=== PATIENT | female | born 1945 ===

== ENCOUNTER 2025-07-17 08:45 | Inpatient (IN) | payer OTHER ==
[~2025-07-17] VITALS: Ht 149.9 cm; Wt 69.9 kg
[2025-07-17] MEDS ORDERED: DILTIAZEM ER240 M3 PO (10:29)
[2025-07-17] MEDS ORDERED: FOSAMAX70 MG PO (10:29)
[2025-07-17] MEDS ORDERED: SYNTHROID137 MCG PO (10:29)
[2025-07-17] MEDS ORDERED: HUMULIN 70100 UNIT/2 (10:30)
[2025-07-17] MEDS ORDERED: ATORVASTATIN CA10 MG PO (10:30)
[2025-07-17] MEDS ORDERED: GLIMEPIRIDE4 M1 PO (10:31)
[2025-07-17] MEDS ORDERED: ZESTRIL20 MG PO (10:31)
[2025-07-17] MEDS ORDERED: HORIZANT300 MG PO (10:31)
[2025-07-17 10:52] VITALS: BP 152/82
[2025-07-17 10:57] LABS: BASO % 0.5 % (0.1-1.2); EOS # 0.26 (0.04-0.54); EOS % 2.4 % (0.7-7.0); LYMPH # 2.43 (1.18-3.74); LYMPH % 22.3 % (19.3-53.1); MEAN PLATELET VOLUME 10.50 fl (9.4-12.4); MONO # 0.74 (0.24-0.82); MONO % 6.8 % (4.7-12.5); NEUT # 7.41 (1.56-6.13); NEUT % 67.7 % (34.0-71.1); RED CELL DISTRIBUTION WIDTH 14.8 % (11.6-14.4)
[2025-07-17 10:58] LABS: URINE APPEARANCE Clear; URINE BILIRRUBIN Negative (NEGATIVE); URINE BLOOD Moderate; URINE COLOR Yellow; URINE KETONE Trace (NEGATIVE); URINE LEUKOCYTE Negative; URINE NITRATE Negative; URINE PROTEIN Trace (NEGATIVE); URINE UROBILINOGEN 0.2 E.U./dl
[2025-07-17 10:59] LABS: URINE BACTERIA 8.3 uL (0.0-1933); URINE EPITHELIAL CELLS 3.3 uL (0.0-38.8); URINE RBC 113.6 uL (0.0-20.8); URINE WBC 6.6 uL (0.0-23.2)
[2025-07-17 11:12] LABS: URINE CAST 0.00 uL (0.0-1.40); URINE GLUCOSE >=1000 MG/DL (NEGATIVE)
[2025-07-17 11:27] LABS: ALT/SGPT 22.0 U/L (12-78); AST/SGOT 20.0 U/L (15-37); BILIRUBIN TOTAL 0.68 mg/dL (0.3-1.2); BUN CREA RATIO 23.0 (7.0-25.0); CREATININE SERUM 1.11 mg/dL (0.55-1.02); GFR 47.18; GLOBULINA 4.4 G/DL (2.4-3.5); GLUCOSE FASTING 129.0 mg/dL (65-100); OSMOLALITY SERUM 287.0 MOSM/KG (275-295)
[2025-07-17 11:31] LABS: INR 1.05
[2025-07-17 13:29] LABS: RH POSITIVE
[2025-07-23] MEDS ORDERED: GABAPENTIN300 M2 (11:48)
[2025-07-23] MEDS ORDERED: FARXIGA10 MG (11:49)
[2025-07-23] MEDS ORDERED: TRANEXAMIC ACID 1,000 MG in 0.9 % SODIUM CHLORIDE 100 ML IV ONE (12:00)
[2025-07-23] MEDS ORDERED: CEFAZOLIN SODIUM 2,000 MG in 0.9 % SODIUM CHLORIDE 100 ML IV ONE (12:00)
[2025-07-23] MEDS ORDERED: VANCOMYCIN HCL 2,000 MG in 0.9 % SODIUM CHLORIDE 250 ML IR ONE (12:00)
[2025-07-23] MEDS ORDERED: POLYMYXIN B SULFATE 500,000 U VIAL IR ONE (12:00)
[2025-07-23] MEDS ORDERED: BUPIVACAINE HCL 30 ML VIAL IJ ONE (12:00)
[2025-07-23] MEDS ORDERED: KETOROLAC TROMETHAMINE 30 MG VIAL IU ONE (12:00)
[2025-07-23] MEDS ORDERED: MORPHINE SULFATE 4 MG/ML VIAL IV ONE ×2 (12:00→16:50)
[2025-07-23] MEDS ORDERED: METHYLPREDNISOLONE ACETATE 80 MG/ML VIAL IU ONE (12:00)
[2025-07-23] MEDS ORDERED: SODIUM CHLORIDE 0.45 % 1,000 ML IV SCH (14:00)
[2025-07-23] MEDS ORDERED: MORPHINE SULFATE 2 MG/ML CARTRIDGE IV ONE (14:00)
[2025-07-23] MEDS ORDERED: MORPHINE SULFATE 4 MG/ML CARTRIDGE IV PRN (14:00)
[2025-07-23] MEDS ORDERED: ONDANSETRON HCL 2 MG/ML VIAL IV PRN (14:00)
[2025-07-23 18:00] VITALS: BP 120/60; O2SAT 96
[2025-07-23] MEDS ORDERED: CEFAZOLIN SODIUM 1,000 MG VIAL IV SCH (18:00)
[2025-07-24 01:00] VITALS: BP 167/83; O2SAT 99
[2025-07-24] MEDS ORDERED: LEVOTHYROXINE SODIUM 137 MCG TABLET PO SCH (06:00)
[2025-07-24 06:16] LABS: BASO % 0.2 % (0.1-1.2); EOS # 0.03 (0.04-0.54); EOS % 0.3 % (0.7-7.0); LYMPH # 1.18 (1.18-3.74); LYMPH % 10.9 % (19.3-53.1); MEAN PLATELET VOLUME 12.40 fl (9.4-12.4); MONO # 0.98 (0.24-0.82); MONO % 9.0 % (4.7-12.5); NEUT # 8.58 (1.56-6.13); NEUT % 79.2 % (34.0-71.1); RED CELL DISTRIBUTION WIDTH 14.9 % (11.6-14.4)
[2025-07-24 08:07] VITALS: BP 157/83; O2SAT 96
[2025-07-24] MEDS ORDERED: LISINOPRIL 20 MG TABLET PO SCH (09:00)
[2025-07-24] MEDS ORDERED: BACITRACIN 28.35 GM OINT.TUBE TP SCH (09:00)
[2025-07-24] MEDS ORDERED: RIVAROXABAN 10 MG TAB PO SCH (09:00)
[2025-07-24] MEDS ORDERED: DILTIAZEM HCL 240 MG CAP.SR.24H PO SCH (09:00)
[2025-07-24] MEDS ORDERED: ATORVASTATIN CALCIUM 10 MG TABLET PO SCH (09:00)
[2025-07-24] MEDS ORDERED: SENNA/DOCUSATE SODIUM 1 TAB TABLET PO SCH (09:00)
[2025-07-24] MEDS ORDERED: GLIMEPIRIDE 4 MG TABLET PO SCH (09:00)
[2025-07-24] MEDS ORDERED: IRON FUM,PS/FOLIC/BCOMP,C NO.9 1 CAP CAPSULE PO SCH (09:00)
[2025-07-24] MEDS ORDERED: INSULIN LISPRO 1,000 UNIT/10 ML UNITS SUBCUTANEO PRN (10:15)
[2025-07-24] MEDS ORDERED: DEXTROSE 50 % IN WATER 0.5 G/ML VIAL IV PRN (10:15)
[2025-07-24 12:37] LABS: ALT/SGPT 22.0 U/L (12-78); AST/SGOT 16.0 U/L (15-37); BILIRUBIN TOTAL 0.58 mg/dL (0.3-1.2); BUN CREA RATIO 17.0 (7.0-25.0); CREATININE SERUM 1.21 mg/dL (0.55-1.02); GFR 42.7; GLOBULINA 3.6 G/DL (2.4-3.5); GLUCOSE FASTING 345.0 mg/dL (65-100); OSMOLALITY SERUM 294.0 MOSM/KG (275-295)
[2025-07-24 12:56] LABS: COVID-19 AG NEGATIVE (NEGATIVE)
[2025-07-24] MEDS ORDERED: ACETAMINOPHEN WITH CODEINE 1 UDTAB TABLET PO PRN (13:00)
[2025-07-24] MEDS ORDERED: INTEGRA PLUS C1 EACH PO (14:08)
[2025-07-24] MEDS ORDERED: XARELTO10 MG PO (14:08)
[2025-07-24] MEDS ORDERED: Septra Ds Tablet PO (14:08)
[2025-07-24] MEDS ORDERED: ACETAMINOPHEN-1 EAC2 PO (14:08)
[2025-07-24] MEDS ORDERED: INSULIN NPH HUM/REG INSULIN HM 1,000 UNIT/10 ML UNITS SUBCUTANEO SCH (17:00)
[2025-07-24 17:14] VITALS: BP 107/64; O2SAT 98
[2025-07-24] MEDS ORDERED: SULFAMETHOXAZOLE/TRIMETHOPRIM DS 1 TAB PO SCH (21:00)
[2025-07-25 00:50] VITALS: BP 136/80; O2SAT 97
[2025-07-25 06:54] LABS: BASO % 0.2 % (0.1-1.2); EOS # 0.17 (0.04-0.54); EOS % 1.3 % (0.7-7.0); LYMPH # 0.91 (1.18-3.74); LYMPH % 7.0 % (19.3-53.1); MEAN PLATELET VOLUME 11.50 fl (9.4-12.4); MONO # 1.07 (0.24-0.82); MONO % 8.3 % (4.7-12.5); NEUT # 10.70 (1.56-6.13); NEUT % 82.7 % (34.0-71.1); RED CELL DISTRIBUTION WIDTH 14.7 % (11.6-14.4)
[2025-07-25] MEDS ORDERED: INSULIN NPH HUM/REG INSULIN HM 1,000 UNIT/10 ML UNITS SUBCUTANEO SCH (07:30)
[2025-07-25] MEDS ORDERED: GABAPENTIN 300 MG CAPSULE PO SCH (09:00)
[2025-07-25 10:46] VITALS: BP 128/82; O2SAT 96
== END 2025-07-25 12:13 | DRG 470 ==
LOC: O/R 07-23 08:00 → SURG 07-23 08:00 → SURH 07-23 08:45 → SURG 07-23 14:49
PROVIDERS: ADMIT Orthopaedic Surgery Sports Medicine; ATTEND Orthopaedic Surgery Sports Medicine
PROC: 0SRC0J9 Replacement of Right Knee Joint with Synthetic Substitute, Cemented, Open Approach (ICD-10-PCS; principal; 2025-07-23 14:30)
DX: M17.4 Other bilateral secondary osteoarthritis of knee (principal)

== ENCOUNTER 2025-08-23 12:58 | Inpatient (IN) | payer OTHER ==
[~2025-08-23] VITALS: Ht 149.9 cm; Wt 70.8 kg
[~2025-08-23 12:58] MED LIST: ACETAMINOPHEN-1 EAC2 PO; ATORVASTATIN CA10 MG PO; DILTIAZEM ER240 M3 PO; FARXIGA10 MG; FOSAMAX70 MG PO; GABAPENTIN300 M2; GLIMEPIRIDE4 M1 PO; HORIZANT300 MG PO; HUMULIN 70100 UNIT/2; INTEGRA PLUS C1 EACH PO; SYNTHROID137 MCG PO; Septra Ds Tablet PO; XARELTO10 MG PO; ZESTRIL20 MG PO
--- NOTE | 2025-08-23 13:40 | NUR ---
SE RECIBE PACIENTE ALERTA Y ORIENTADA X3 , LA MISMA VIENE REFERIDA POR SLAUGHTER CIRUJANO DR PATRICIA SEPULVEDA DEBIDO A HERIDA POST QUIRURJICA INFECTADA EN LA RODILLA DERECHA. SE UBICA PACIENTE EN CAMA 8
[2025-08-23] MEDS ORDERED: 0.9 % SODIUM CHLORIDE 1,000 ML IV SCH ×2 (15:00→18:30)
[2025-08-23 15:32] LABS: BASO % 0.8 % (0.1-1.2); EOS # 0.00 (0.04-0.54); EOS % 0.0 % (0.7-7.0); LYMPH # 0.78 (1.18-3.74); LYMPH % 12.9 % (19.3-53.1); MEAN PLATELET VOLUME 10.90 fl (9.4-12.4); MONO # 0.77 (0.24-0.82); NEUT # 4.08 (1.56-6.13); NEUT % 67.7 % (34.0-71.1)
[2025-08-23 15:57] LABS: BAND MAN 1.0 %; LYMPHOCYTE MAN 5.0 %; METAMYELOCYTE 1.0 %; MONO % 12.8 % (4.7-12.5); MONOCYTE MAN 9.0 %; MYELOCYTE 2.0 %; NEUTROPHILS MAN 82.0 %; RED CELL DISTRIBUTION WIDTH 17.9 % (11.6-14.4)
--- NOTE | 2025-08-23 16:17 | NUR ---
SE LE ORIENTA A PACIENTE SOBRE LA ORDEN MEDICA, REFIERE ENTENDER LAS MISMAS. SE CANALIZA Y SE LE COLOCA EL IVF'S, SE LE DHAVAL LAS MUETRAS Y SE LE REALIZA PLACA AURA LA ORDEN.
[2025-08-23 16:50] LABS: INR 1.02
[2025-08-23 16:58] LABS: ALT/SGPT 25.0 U/L (12-78); AST/SGOT 19.0 U/L (15-37); BILIRUBIN TOTAL 0.39 mg/dL (0.3-1.2); BUN CREA RATIO 20.0 (7.0-25.0); CREATININE SERUM 3.49 mg/dL (0.55-1.02); GFR 12.58; GLOBULINA 5.2 G/DL (2.4-3.5)
[2025-08-23] MEDS ORDERED: ENALAPRILAT DIHYDRATE 2.5 MG/2 ML VIAL IV PRN (17:15)
[2025-08-23] MEDS ORDERED: ACETAMINOPHEN 500 MG GEL..CAP PO PRN (17:15)
[2025-08-23] MEDS ORDERED: DEXTROSE 50 % IN WATER 0.5 G/ML DISP.SYRIN IV PRN (17:15)
[2025-08-23] MEDS ORDERED: INSULIN LISPRO 1,000 UNIT/10 ML UNITS SUBCUTANEO PRN (17:15)
[2025-08-23 17:21] LABS: GLUCOSE FASTING 306.0 mg/dL (65-100); OSMOLALITY SERUM 292.0 MOSM/KG (275-295)
[2025-08-23] MEDS ORDERED: SODIUM POLYSTYRENE SULFONATE 30G/8 TSP PO STA ×2 (18:21)
[2025-08-23] MEDS ORDERED: INSULIN REGULAR, HUMAN 1,000 UNIT/10 ML UNITS IV STA (18:22)
[2025-08-23] MEDS ORDERED: hydrALAZINE HCL 20 MG VIAL IV PRN (18:30)
[2025-08-23] MEDS ORDERED: CEFTRIAXONE SODIUM 2,000 MG in 0.9 % SODIUM CHLORIDE 100 ML IV SCH (18:46)
[2025-08-23] MEDS ORDERED: LACTOBACILLUS ACIDOPHILUS 1 CAP CAP PO SCH (18:52)
[2025-08-23 20:18] VITALS: BP 112/72; O2SAT 96
[2025-08-23] MEDS ORDERED: Daptomycin 350 MG/VIAL VIAL IV SCH (21:00)
[2025-08-23] MEDS ORDERED: FAMOTIDINE/PF 20 MG in 0.9 % SODIUM CHLORIDE 8 ML IV PUSH SCH (21:00)
[2025-08-23] MEDS ORDERED: SODIUM POLYSTYRENE SULFONATE 30G/8 TSP PO SCH (21:00)
[2025-08-23] MEDS ORDERED: CALCIUM GLUCONATE 100 MG/ML VIAL IV NR (21:00)
[2025-08-24 00:39] VITALS: BP 130/69; O2SAT 95
[2025-08-24 03:45] LABS: BUN CREA RATIO 20.0 (7.0-25.0); CREATININE SERUM 2.98 mg/dL (0.55-1.02); GFR 15.09
[2025-08-24 03:47] LABS: ALT/SGPT 22.0 U/L (12-78); AST/SGOT 17.0 U/L (15-37); BILIRUBIN TOTAL 0.33 mg/dL (0.3-1.2); BUN CREA RATIO 21.0 (7.0-25.0); CREATININE SERUM 3.04 mg/dL (0.55-1.02); GFR 14.75; GLOBULINA 4.6 G/DL (2.4-3.5); PHOSPHOKINASE CREATININE 75.0 U/L (26-192)
[2025-08-24 03:49] LABS: GLUCOSE FASTING 264.0 mg/dL (65-100); OSMOLALITY SERUM 295.0 MOSM/KG (275-295)
[2025-08-24 03:51] LABS: GLUCOSE FASTING 264.0 mg/dL (65-100); OSMOLALITY SERUM 294.0 MOSM/KG (275-295)
[2025-08-24 08:00] VITALS: BP 133/79; O2SAT 98
[2025-08-24 08:46] LABS: ALT/SGPT 20.0 U/L (12-78); AST/SGOT 18.0 U/L (15-37); BILIRUBIN TOTAL 0.35 mg/dL (0.3-1.2); BUN CREA RATIO 21.0 (7.0-25.0); CREATININE SERUM 2.77 mg/dL (0.55-1.02); GFR 16.42; GLOBULINA 4.1 G/DL (2.4-3.5); GLUCOSE FASTING 125.0 mg/dL (65-100); OSMOLALITY SERUM 292.0 MOSM/KG (275-295)
[2025-08-24] MEDS ORDERED: SOD FERRIC GLUC COMPLX/SUCROSE 62.5 MG in 0.9 % SODIUM CHLORIDE 50 ML IV SCH (09:00)
[2025-08-24] MEDS ORDERED: INSULIN GLARGINE,HUM.REC.ANLOG 1,000 UNITS/10 ML UNITS SUBCUTANEO SCH (09:00)
[2025-08-24] MEDS ORDERED: SODIUM POLYSTYRENE SULFONATE 30G/8 TSP PO SCH (09:16)
[2025-08-24] MEDS ORDERED: LACTULOSE 20 G/30 ML BLIST.PACK PO STA (09:16)
[2025-08-24] MEDS ORDERED: DEXTROSE 5 % AND 0.9 % NACL 1,000 ML IV SCH (11:30)
[2025-08-24 16:00] VITALS: BP 105/74; O2SAT 99
[2025-08-24] MEDS ORDERED: 0.9 % SODIUM CHLORIDE 1,000 ML IV SCH (16:30)
[2025-08-24] MEDS ORDERED: AMINO ACIDS/PROTEIN HYDROLYS 30 ML BLIST.PACK PO SCH (17:00)
[2025-08-24] MEDS ORDERED: CEFTRIAXONE SODIUM 2,000 MG in 0.9 % SODIUM CHLORIDE 100 ML IV SCH (17:00)
[2025-08-24] MEDS ORDERED: LINEZOLID IN DEXTROSE 5% 300 ML IV SCH (21:00)
[2025-08-25 00:30] VITALS: BP 114/73; O2SAT 97
[2025-08-25 00:39] LABS: BASO % 1.7 % (0.1-1.2); EOS # 0.00 (0.04-0.54); EOS % 0.0 % (0.7-7.0); LYMPH # 1.58 (1.18-3.74); LYMPH % 19.2 % (19.3-53.1); MEAN PLATELET VOLUME 11.60 fl (9.4-12.4); MONO # 1.13 (0.24-0.82); NEUT # 4.83 (1.56-6.13); NEUT % 58.8 % (34.0-71.1); RED CELL DISTRIBUTION WIDTH 18.1 % (11.6-14.4)
[2025-08-25 01:08] LABS: BAND MAN 1.0 %; BLAST MAN 1.0 %; LYMPHOCYTE MAN 19.0 %; METAMYELOCYTE 5.0 %; MONO % 13.7 % (4.7-12.5); MONOCYTE MAN 11.0 %; NEUTROPHILS MAN 63.0 %
[2025-08-25 01:10] LABS: ERYTHROCYTE SEDIMENTATION RATE > 130 mm/hr (0-30)
[2025-08-25] MEDS ORDERED: LEVOTHYROXINE SODIUM 137 MCG TABLET PO SCH (06:00)
[2025-08-25 08:08] LABS: BASO % 0.4 % (0.1-1.2); EOS # 0.00 (0.04-0.54); EOS % 0.0 % (0.7-7.0); LYMPH # 1.39 (1.18-3.74); LYMPH % 20.7 % (19.3-53.1); MEAN PLATELET VOLUME 11.40 fl (9.4-12.4); MONO # 0.82 (0.24-0.82); NEUT # 4.05 (1.56-6.13); NEUT % 60.4 % (34.0-71.1); RED CELL DISTRIBUTION WIDTH 17.9 % (11.6-14.4)
[2025-08-25 08:11] VITALS: BP 127/78; O2SAT 99
[2025-08-25 08:23] LABS: MONO % 12.2 % (4.7-12.5)
[2025-08-25 08:37] LABS: ALT/SGPT 17.0 U/L (12-78); AST/SGOT 13.0 U/L (15-37); BILIRUBIN TOTAL 0.35 mg/dL (0.3-1.2); BUN CREA RATIO 28.0 (7.0-25.0); CREATININE SERUM 1.62 mg/dL (0.55-1.02); CREATININE SERUM 1.63 mg/dL (0.55-1.02); GFR 30.28; GFR 30.5; GLOBULINA 4.5 G/DL (2.4-3.5); GLUCOSE FASTING 190.0 mg/dL (65-100); OSMOLALITY SERUM 298.0 MOSM/KG (275-295)
[2025-08-25] MEDS ORDERED: INSULIN LISPRO 1,000 UNIT/10 ML UNITS SUBCUTANEO STA (08:55)
[2025-08-25] MEDS ORDERED: INSULIN LISPRO 1,000 UNIT/10 ML UNITS SUBCUTANEO SCH (12:00)
[2025-08-25 15:56] VITALS: O2SAT 76
[2025-08-25 16:39] VITALS: BP 126/63; O2SAT 100
[2025-08-25] MEDS ORDERED: ENOXAPARIN SODIUM 30 MG/0.3 ML SYRINGE SUBCUTANEO SCH (17:00)
[2025-08-26 00:51] VITALS: BP 175/122; O2SAT 98
[2025-08-26 03:17] VITALS: BP 118/66
[2025-08-26 07:57] LABS: BASO % 1.2 % (0.1-1.2); EOS # 0.00 (0.04-0.54); EOS % 0.0 % (0.7-7.0); LYMPH # 1.72 (1.18-3.74); LYMPH % 21.1 % (19.3-53.1); MEAN PLATELET VOLUME 10.90 fl (9.4-12.4); MONO # 0.89 (0.24-0.82); MONO % 10.9 % (4.7-12.5); NEUT # 4.96 (1.56-6.13); NEUT % 60.8 % (34.0-71.1); RED CELL DISTRIBUTION WIDTH 17.2 % (11.6-14.4)
[2025-08-26 08:03] LABS: BUN CREA RATIO 30.0 (7.0-25.0); CREATININE SERUM 1.09 mg/dL (0.55-1.02); GFR 48.17; GLUCOSE FASTING 133.0 mg/dL (65-100); OSMOLALITY SERUM 298.0 MOSM/KG (275-295)
[2025-08-26 08:21] VITALS: BP 162/82; O2SAT 99
[2025-08-26 09:09] LABS: BASOPHIL MAN 1.0 %; LYMPHOCYTE MAN 11.0 %; METAMYELOCYTE 5.0 %; MONOCYTE MAN 13.0 %; MYELOCYTE 1.0 %; NEUTROPHILS MAN 69.0 %
[2025-08-26] MEDS ORDERED: POTASSIUM CHLORIDE IN WATER 40 MEQ/100 ML PIGGYBAG IV NR (10:00)
[2025-08-26] MEDS ORDERED: POTASSIUM CHLORIDE 10 MEQ CAPSULE PO SCH (13:00)
[2025-08-26 16:00] VITALS: BP 122/67; O2SAT 99
[2025-08-26] MEDS ORDERED: ENOXAPARIN SODIUM 40 MG/0.4 ML SYRINGE SUBCUTANEO SCH (17:00)
[2025-08-27 00:53] VITALS: BP 147/71; O2SAT 97
[2025-08-27 08:37] VITALS: BP 165/77; O2SAT 98
[2025-08-27] MEDS ORDERED: INSULIN GLARGINE,HUM.REC.ANLOG 1,000 UNITS/10 ML UNITS SUBCUTANEO SCH (09:00)
[2025-08-27 16:48] LABS: URINE APPEARANCE Clear; URINE BILIRRUBIN Negative (NEGATIVE); URINE BLOOD Moderate; URINE COLOR Yellow; URINE KETONE Negative (NEGATIVE); URINE LEUKOCYTE Negative; URINE NITRATE Negative; URINE PROTEIN 30 (NEGATIVE); URINE UROBILINOGEN 1.0 E.U./dl
[2025-08-27 16:54] LABS: URINE BACTERIA 10.7 uL (0.0-1933); URINE EPITHELIAL CELLS 4.6 uL (0.0-38.8); URINE RBC 74.7 uL (0.0-20.8); URINE WBC 6.0 uL (0.0-23.2)
[2025-08-27 17:04] LABS: URINE CAST 0.73 uL (0.0-1.40); URINE GLUCOSE >=1000 MG/DL (NEGATIVE)
[2025-08-27 18:09] VITALS: BP 169/95; O2SAT 98
[2025-08-27] MEDS ORDERED: VANCOMYCIN HCL 1,000 MG VIAL ONE (21:24)
[2025-08-27] MEDS ORDERED: MEROPENEM 500 MG/VIAL VIAL IV ONE (22:15)
[2025-08-28] MEDS ORDERED: ONDANSETRON HCL 2 MG/ML VIAL IV PRN (00:15)
[2025-08-28] MEDS ORDERED: TRAMADOL HCL 50 MG TABLET PO PRN (00:15)
[2025-08-28] MEDS ORDERED: PROMETHAZINE HCL 50 MG/ML AMPUL IM PRN (00:15)
[2025-08-28] MEDS ORDERED: ONDANSETRON 4 MG TAB.RAPDIS PO PRN (00:15)
[2025-08-28] MEDS ORDERED: SODIUM CHLORIDE 0.45 % 1,000 ML IV SCH (00:15)
[2025-08-28 03:20] VITALS: BP 136/84; O2SAT 98
[2025-08-28 06:47] LABS: BASO % 0.6 % (0.1-1.2); EOS # 0.00 (0.04-0.54); EOS % 0.0 % (0.7-7.0); LYMPH # 1.77 (1.18-3.74); LYMPH % 8.8 % (19.3-53.1); MEAN PLATELET VOLUME 9.50 fl (9.4-12.4); MONO # 1.39 (0.24-0.82); MONO % 6.9 % (4.7-12.5); NEUT # 16.23 (1.56-6.13); NEUT % 81.1 % (34.0-71.1); RED CELL DISTRIBUTION WIDTH 18.2 % (11.6-14.4)
[2025-08-28 07:18] LABS: ALT/SGPT 28.0 U/L (12-78); AST/SGOT 39.0 U/L (15-37); BILIRUBIN TOTAL 0.39 mg/dL (0.3-1.2); BUN CREA RATIO 19.0 (7.0-25.0); CREATININE SERUM 1.23 mg/dL (0.55-1.02); GFR 41.9; GLOBULINA 4.5 G/DL (2.4-3.5)
[2025-08-28 07:20] LABS: GLUCOSE FASTING 213.0 mg/dL (65-100); OSMOLALITY SERUM 304.0 MOSM/KG (275-295)
[2025-08-28 08:00] VITALS: BP 126/67; O2SAT 97
[2025-08-28] MEDS ORDERED: INSULIN NPH HUM/REG INSULIN HM 1,000 UNIT/10 ML UNITS SUBCUTANEO STA (08:07)
[2025-08-28] MEDS ORDERED: FAMOTIDINE/PF 20 MG in 0.9 % SODIUM CHLORIDE 8 ML IV PUSH SCH (09:00)
[2025-08-28] MEDS ORDERED: PANTOPRAZOLE SODIUM 40 MG TABLET.DR PO SCH (09:00)
[2025-08-28] MEDS ORDERED: AMPICILLIN SODIUM/SULBACTAM NA 3,000 MG VIAL IV NR (14:30)
[2025-08-28 15:15] VITALS: BP 129/82; O2SAT 99
[2025-08-28] MEDS ORDERED: INSULIN NPH HUM/REG INSULIN HM 1,000 UNIT/10 ML UNITS SUBCUTANEO SCH (17:00)
[2025-08-28] MEDS ORDERED: AMPICILLIN SODIUM/SULBACTAM NA 3,000 MG VIAL IV SCH (20:00)
[2025-08-28] MEDS ORDERED: INSULIN NPH HUMAN ISOPHANE 1,000 UNITS/10 ML UNITS SUBCUTANEO STA (20:02)
[2025-08-29 01:43] VITALS: BP 115/73; O2SAT 98
[2025-08-29 06:31] LABS: BASO % 0.3 % (0.1-1.2); EOS # 0.00 (0.04-0.54); EOS % 0.0 % (0.7-7.0); LYMPH # 1.82 (1.18-3.74); LYMPH % 10.3 % (19.3-53.1); MEAN PLATELET VOLUME 9.00 fl (9.4-12.4); MONO # 1.56 (0.24-0.82); MONO % 8.8 % (4.7-12.5); NEUT # 13.94 (1.56-6.13); NEUT % 78.7 % (34.0-71.1); RED CELL DISTRIBUTION WIDTH 18.4 % (11.6-14.4)
[2025-08-29 07:02] LABS: BUN CREA RATIO 23.0 (7.0-25.0); CREATININE SERUM 1.17 mg/dL (0.55-1.02); GFR 44.39; GLUCOSE FASTING 176.0 mg/dL (65-100); OSMOLALITY SERUM 302.0 MOSM/KG (275-295)
[2025-08-29 08:00] VITALS: BP 133/88; O2SAT 99
[2025-08-29] MEDS ORDERED: INSULIN NPH HUM/REG INSULIN HM 1,000 UNIT/10 ML UNITS SUBCUTANEO SCH ×3 (08:00→17:00)
[2025-08-29] MEDS ORDERED: RIVAROXABAN 10 MG TAB PO SCH (09:00)
[2025-08-29 16:00] VITALS: BP 142/81; O2SAT 99
[2025-08-30 01:24] VITALS: BP 105/72; O2SAT 96
[2025-08-30 09:23] VITALS: BP 135/80; O2SAT 98
[2025-08-30 16:28] VITALS: BP 136/84; O2SAT 99
[2025-08-31 01:09] VITALS: BP 122/76; O2SAT 100
[2025-08-31 06:51] LABS: BASO % 0.5 % (0.1-1.2); EOS # 0.00 (0.04-0.54); EOS % 0.0 % (0.7-7.0); LYMPH # 2.28 (1.18-3.74); LYMPH % 16.8 % (19.3-53.1); MEAN PLATELET VOLUME 10.00 fl (9.4-12.4); MONO # 1.17 (0.24-0.82); MONO % 8.6 % (4.7-12.5); NEUT # 9.63 (1.56-6.13); NEUT % 71.2 % (34.0-71.1); RED CELL DISTRIBUTION WIDTH 18.2 % (11.6-14.4)
[2025-08-31 07:28] LABS: ALT/SGPT 35.0 U/L (12-78); AST/SGOT 31.0 U/L (15-37); BILIRUBIN TOTAL 0.37 mg/dL (0.3-1.2); BUN CREA RATIO 28.0 (7.0-25.0); CREATININE SERUM 1.01 mg/dL (0.55-1.02); GFR 52.6; GLOBULINA 3.9 G/DL (2.4-3.5); GLUCOSE FASTING 177.0 mg/dL (65-100); OSMOLALITY SERUM 287.0 MOSM/KG (275-295)
[2025-08-31 08:00] VITALS: BP 128/80; O2SAT 99
[2025-08-31 16:00] VITALS: BP 138/80; O2SAT 99
[2025-08-31] MEDS ORDERED: FOLIC ACID 1 MG TABLET PO SCH (17:00)
[2025-08-31] MEDS ORDERED: Cyanocobalamin/Mecobalamin 1 TAB.SL SL SCH (17:00)
[2025-08-31] MEDS ORDERED: SOD FERRIC GLUC COMPLX/SUCROSE 62.5 MG in 0.9 % SODIUM CHLORIDE 50 ML IV SCH (17:00)
[2025-08-31 17:12] LABS: ob POSITIVE (NEGATIVE)
[2025-08-31] MEDS ORDERED: BACITRACIN 28.35 GM OINT.TUBE TOP SCH (20:00)
[2025-08-31] MEDS ORDERED: CHLORHEXIDINE GLUCONATE 120 ML BOTTLE TOP SCH (20:00)
[2025-09-01 01:13] VITALS: BP 137/78; O2SAT 99
[2025-09-01 08:49] VITALS: BP 133/80; O2SAT 97
[2025-09-01 16:00] VITALS: BP 127/83; O2SAT 97
[2025-09-02 00:15] VITALS: BP 144/78; O2SAT 99
[2025-09-02 08:05] LABS: ALT/SGPT 28.0 U/L (12-78); AST/SGOT 24.0 U/L (15-37); BILIRUBIN TOTAL 0.39 mg/dL (0.3-1.2); BUN CREA RATIO 26.0 (7.0-25.0); CREATININE SERUM 0.88 mg/dL (0.55-1.02); GFR 61.67; GLOBULINA 3.9 G/DL (2.4-3.5); GLUCOSE FASTING 196.0 mg/dL (65-100); OSMOLALITY SERUM 290.0 MOSM/KG (275-295)
[2025-09-02 08:11] VITALS: BP 132/81; O2SAT 98
[2025-09-02 08:16] LABS: BASO % 1.1 % (0.1-1.2); EOS # 0.00 (0.04-0.54); EOS % 0.0 % (0.7-7.0); LYMPH # 2.06 (1.18-3.74); LYMPH % 18.1 % (19.3-53.1); MEAN PLATELET VOLUME 10.10 fl (9.4-12.4); MONO # 1.19 (0.24-0.82); MONO % 10.4 % (4.7-12.5); NEUT # 7.64 (1.56-6.13); NEUT % 67.2 % (34.0-71.1); RED CELL DISTRIBUTION WIDTH 18.9 % (11.6-14.4)
[2025-09-02 15:00] VITALS: BP 150/105; O2SAT 99
[2025-09-03] VITALS: BP 163/89; BP 171/96; O2SAT 98
[2025-09-03 08:22] VITALS: BP 133/83; O2SAT 98
[2025-09-03 16:46] VITALS: BP 141/76; O2SAT 100
[2025-09-03] MEDS ORDERED: INSULIN NPH HUM/REG INSULIN HM 1,000 UNIT/10 ML UNITS SUBCUTANEO SCH (17:00)
[2025-09-04 00:30] VITALS: BP 116/72; O2SAT 99
[2025-09-04 06:31] LABS: BASO % 1.2 % (0.1-1.2); EOS # 0.02 (0.04-0.54); EOS % 0.2 % (0.7-7.0); LYMPH # 2.15 (1.18-3.74); LYMPH % 21.9 % (19.3-53.1); MEAN PLATELET VOLUME 10.00 fl (9.4-12.4); MONO # 1.23 (0.24-0.82); NEUT # 6.16 (1.56-6.13); NEUT % 62.9 % (34.0-71.1); RED CELL DISTRIBUTION WIDTH 19.7 % (11.6-14.4)
[2025-09-04 06:49] LABS: MONO % 12.5 % (4.7-12.5)
[2025-09-04 06:57] LABS: ERYTHROCYTE SEDIMENTATION RATE 119 mm/hr (0-30)
[2025-09-04 07:01] LABS: ALT/SGPT 22.0 U/L (12-78); AST/SGOT 25.0 U/L (15-37); BILIRUBIN TOTAL 0.49 mg/dL (0.3-1.2); BUN CREA RATIO 18.0 (7.0-25.0); CREATININE SERUM 0.84 mg/dL (0.55-1.02); GFR 65.07; GLOBULINA 3.9 G/DL (2.4-3.5); GLUCOSE FASTING 96.0 mg/dL (65-100); OSMOLALITY SERUM 284.0 MOSM/KG (275-295)
[2025-09-04 08:00] VITALS: BP 165/90; O2SAT 98
[2025-09-04 12:00] VITALS: BP 143/88
[2025-09-04 16:00] VITALS: BP 143/85; O2SAT 99
[2025-09-04] MEDS ORDERED: INSULIN NPH HUM/REG INSULIN HM 1,000 UNIT/10 ML UNITS SUBCUTANEO SCH (17:00)
[2025-09-04] MEDS ORDERED: BUPIVACAINE HCL/MPF 0.5% 30ML VIAL ONE (21:06)
[2025-09-04] MEDS ORDERED: KETOROLAC TROMETHAMINE 60 MG VIAL IM ONE (21:06)
[2025-09-04] MEDS ORDERED: VANCOMYCIN HCL 1,000 MG VIAL ONE ×2 (21:06→23:02)
[2025-09-04] MEDS ORDERED: POLYMYXIN B SULFATE 500,000 U VIAL ONE (21:08)
[2025-09-04] MEDS ORDERED: ISOPROPYL ALCOHOL 30 ML OUNCE TOP ONE (21:08)
[2025-09-04] MEDS ORDERED: POVIDONE-IODINE SCRUB 118 ML BOTT TOP ONE ×2 (21:29→21:54)
[2025-09-04] MEDS ORDERED: POVIDONE-IODINE 118 ML BOTT TOP ONE (21:29)
[2025-09-05] MEDS ORDERED: SODIUM CHLORIDE 0.45 % 1,000 ML IV SCH (00:15)
[2025-09-05] MEDS ORDERED: MORPHINE SULFATE 2 MG/ML SYRINGE IV PRN (00:15)
[2025-09-05] MEDS ORDERED: ONDANSETRON HCL 2 MG/ML VIAL IV PRN (00:15)
[2025-09-05 06:16] VITALS: BP 105/65; O2SAT 96
[2025-09-05 08:00] VITALS: BP 126/74; O2SAT 97
[2025-09-05] MEDS ORDERED: ENOXAPARIN SODIUM 30 MG/0.3 ML SYRINGE SUBCUTANEO SCH (09:00)
[2025-09-05 16:28] VITALS: BP 112/72; O2SAT 98
[2025-09-05] MEDS ORDERED: CIPROFLOXACIN IN 5 % DEXTROSE 400 MG/200 ML PIGGYBAG IV SCH (21:00)
[2025-09-05 21:38] LABS: BASO % 0.7 % (0.1-1.2); EOS # 0.02 (0.04-0.54); EOS % 0.2 % (0.7-7.0); LYMPH # 1.60 (1.18-3.74); LYMPH % 12.1 % (19.3-53.1); MEAN PLATELET VOLUME 10.80 fl (9.4-12.4); MONO # 1.77 (0.24-0.82); NEUT # 9.66 (1.56-6.13); NEUT % 72.8 % (34.0-71.1); RED CELL DISTRIBUTION WIDTH 19.6 % (11.6-14.4)
[2025-09-05 21:41] LABS: MONO % 13.4 % (4.7-12.5)
[2025-09-06 00:46] VITALS: BP 101/62; O2SAT 97
[2025-09-06 07:38] LABS: BASO % 0.9 % (0.1-1.2); EOS # 0.04 (0.04-0.54); EOS % 0.4 % (0.7-7.0); LYMPH # 2.11 (1.18-3.74); LYMPH % 19.3 % (19.3-53.1); MEAN PLATELET VOLUME 10.70 fl (9.4-12.4); MONO # 1.59 (0.24-0.82); NEUT # 6.97 (1.56-6.13); NEUT % 63.9 % (34.0-71.1); RED CELL DISTRIBUTION WIDTH 19.4 % (11.6-14.4)
[2025-09-06 08:00] VITALS: BP 146/84; O2SAT 98
[2025-09-06] MEDS ORDERED: ACETAMINOPHEN WITH CODEINE 1 UDTAB TABLET PO PRN (08:00)
[2025-09-06 08:03] LABS: MONO % 14.6 % (4.7-12.5)
[2025-09-06] MEDS ORDERED: SENNA/DOCUSATE SODIUM 1 TAB TABLET PO SCH (09:00)
[2025-09-06] MEDS ORDERED: IRON FUM,PS/FOLIC/BCOMP,C NO.9 1 CAP CAPSULE PO SCH (09:00)
[2025-09-06 17:59] VITALS: BP 148/85; O2SAT 99
[2025-09-07 01:45] VITALS: BP 115/69; O2SAT 97
[2025-09-07 06:19] LABS: BASO % 0.8 % (0.1-1.2); EOS # 0.07 (0.04-0.54); EOS % 0.7 % (0.7-7.0); LYMPH # 2.07 (1.18-3.74); LYMPH % 20.6 % (19.3-53.1); MEAN PLATELET VOLUME 10.50 fl (9.4-12.4); MONO # 1.33 (0.24-0.82); NEUT # 6.44 (1.56-6.13); NEUT % 63.9 % (34.0-71.1); RED CELL DISTRIBUTION WIDTH 19.2 % (11.6-14.4)
[2025-09-07 06:35] LABS: MONO % 13.2 % (4.7-12.5)
[2025-09-07] MEDS ORDERED: ACETAMINOPHEN 500 MG GEL..CAP PO PRN (08:45)
[2025-09-07 17:48] VITALS: BP 137/80; O2SAT 100
[2025-09-08 01:11] VITALS: BP 151/84; O2SAT 99
[2025-09-08 09:36] VITALS: BP 172/89; O2SAT 98
[2025-09-08] MEDS ORDERED: AMLODIPINE BESYLATE 5 MG TABLET PO SCH (14:39)
[2025-09-08] MEDS ORDERED: AMLODIPINE BESYLATE 5 MG TABLET PO STA (14:39)
[2025-09-08 17:19] VITALS: BP 178/81; O2SAT 100
[2025-09-09 00:30] VITALS: BP 138/76; O2SAT 98
[2025-09-09 08:36] VITALS: BP 162/79; O2SAT 97
[2025-09-09 16:00] VITALS: BP 161/67; O2SAT 98
[2025-09-10 01:07] VITALS: BP 134/71; O2SAT 98
[2025-09-10 06:37] LABS: BASO % 1.3 % (0.1-1.2); EOS # 0.23 (0.04-0.54); EOS % 3.4 % (0.7-7.0); LYMPH # 1.78 (1.18-3.74); LYMPH % 26.5 % (19.3-53.1); MEAN PLATELET VOLUME 10.10 fl (9.4-12.4); MONO # 0.82 (0.24-0.82); NEUT # 3.73 (1.56-6.13); NEUT % 55.7 % (34.0-71.1); RED CELL DISTRIBUTION WIDTH 19.9 % (11.6-14.4)
[2025-09-10 06:51] LABS: MONO % 12.2 % (4.7-12.5)
[2025-09-10 06:57] LABS: ERYTHROCYTE SEDIMENTATION RATE 109 mm/hr (0-30)
[2025-09-10 07:19] LABS: ALT/SGPT 18.0 U/L (12-78); AST/SGOT 19.0 U/L (15-37); BILIRUBIN TOTAL 0.39 mg/dL (0.3-1.2); BUN CREA RATIO 22.0 (7.0-25.0); CREATININE SERUM 0.89 mg/dL (0.55-1.02); GFR 60.87; GLOBULINA 4.2 G/DL (2.4-3.5); GLUCOSE FASTING 152.0 mg/dL (65-100); OSMOLALITY SERUM 283.0 MOSM/KG (275-295)
[2025-09-10] MEDS ORDERED: INSULIN NPH HUM/REG INSULIN HM 1,000 UNIT/10 ML UNITS SUBCUTANEO SCH (08:00)
[2025-09-10 17:39] VITALS: BP 138/72; O2SAT 98
[2025-09-11 02:06] VITALS: BP 100/62; O2SAT 100
[2025-09-11 16:27] VITALS: BP 129/74; O2SAT 97
[2025-09-12 00:32] VITALS: BP 116/73; O2SAT 98
[2025-09-12 06:54] LABS: BASO % 1.0 % (0.1-1.2); EOS # 0.33 (0.04-0.54); EOS % 4.1 % (0.7-7.0); LYMPH # 2.19 (1.18-3.74); LYMPH % 27.5 % (19.3-53.1); MEAN PLATELET VOLUME 10.10 fl (9.4-12.4); MONO # 0.92 (0.24-0.82); MONO % 11.6 % (4.7-12.5); NEUT # 4.40 (1.56-6.13); NEUT % 55.3 % (34.0-71.1); RED CELL DISTRIBUTION WIDTH 19.3 % (11.6-14.4)
[2025-09-12 07:15] LABS: ERYTHROCYTE SEDIMENTATION RATE 101 mm/hr (0-30)
[2025-09-12 08:00] VITALS: BP 138/76; O2SAT 99
[2025-09-12 16:46] VITALS: BP 103/59; O2SAT 99
[2025-09-13 00:26] VITALS: BP 129/70; O2SAT 98
[2025-09-13] MEDS ORDERED: INSULIN NPH HUM/REG INSULIN HM 1,000 UNIT/10 ML UNITS SUBCUTANEO SCH ×2 (08:00→17:00)
[2025-09-13 10:40] VITALS: BP 150/90; O2SAT 97
[2025-09-13 18:03] VITALS: BP 145/85; O2SAT 969
[2025-09-14 00:55] VITALS: BP 125/71; O2SAT 99
[2025-09-14 08:00] VITALS: BP 144/86; O2SAT 97
[2025-09-14 16:00] VITALS: BP 144/86; O2SAT 98
[2025-09-15 00:30] VITALS: BP 141/82; O2SAT 98
[2025-09-15 07:51] LABS: BASO % 1.3 % (0.1-1.2); EOS # 0.51 (0.04-0.54); EOS % 8.0 % (0.7-7.0); LYMPH # 1.49 (1.18-3.74); LYMPH % 23.3 % (19.3-53.1); MEAN PLATELET VOLUME 10.20 fl (9.4-12.4); MONO # 0.88 (0.24-0.82); NEUT # 3.42 (1.56-6.13); NEUT % 53.3 % (34.0-71.1); RED CELL DISTRIBUTION WIDTH 18.8 % (11.6-14.4)
[2025-09-15 07:56] LABS: MONO % 13.8 % (4.7-12.5)
[2025-09-15 07:57] LABS: ERYTHROCYTE SEDIMENTATION RATE 97 mm/hr (0-30)
[2025-09-15 08:15] VITALS: BP 145/74; O2SAT 98
[2025-09-15 08:21] LABS: ALT/SGPT 25.0 U/L (12-78); AST/SGOT 25.0 U/L (15-37); BILIRUBIN TOTAL 0.28 mg/dL (0.3-1.2); BUN CREA RATIO 31.0 (7.0-25.0); CREATININE SERUM 1.03 mg/dL (0.55-1.02); GFR 51.43; GLOBULINA 4.2 G/DL (2.4-3.5); OSMOLALITY SERUM 289.0 MOSM/KG (275-295)
[2025-09-15 08:22] LABS: GLUCOSE FASTING 223.0 mg/dL (65-100)
[2025-09-15 16:00] VITALS: BP 117/75; O2SAT 99
[2025-09-16 01:20] VITALS: BP 143/76; O2SAT 97
[2025-09-16 08:11] VITALS: BP 151/81; O2SAT 97
[2025-09-16 16:00] VITALS: BP 108/60; O2SAT 99
[2025-09-17 00:29] VITALS: BP 117/64; O2SAT 99
[2025-09-17 06:51] LABS: BASO % 0.7 % (0.1-1.2); EOS # 0.54 (0.04-0.54); EOS % 7.6 % (0.7-7.0); LYMPH # 1.87 (1.18-3.74); LYMPH % 26.2 % (19.3-53.1); MEAN PLATELET VOLUME 10.40 fl (9.4-12.4); MONO # 0.73 (0.24-0.82); MONO % 10.2 % (4.7-12.5); NEUT # 3.94 (1.56-6.13); NEUT % 55.0 % (34.0-71.1); RED CELL DISTRIBUTION WIDTH 18.3 % (11.6-14.4)
[2025-09-17 07:07] LABS: BUN CREA RATIO 28.0 (7.0-25.0); CREATININE SERUM 1.15 mg/dL (0.55-1.02); ERYTHROCYTE SEDIMENTATION RATE 106 mm/hr (0-30); GFR 45.29; GLUCOSE FASTING 116.0 mg/dL (65-100); OSMOLALITY SERUM 284.0 MOSM/KG (275-295)
[2025-09-17 08:00] VITALS: BP 160/89; O2SAT 97
[2025-09-17 17:26] VITALS: BP 113/58; O2SAT 99
[2025-09-18 02:06] VITALS: BP 119/69; O2SAT 99
[2025-09-18 08:00] VITALS: BP 135/81; O2SAT 98
[2025-09-18] MEDS ORDERED: INSULIN NPH HUM/REG INSULIN HM 1,000 UNIT/10 ML UNITS SUBCUTANEO SCH (08:00)
[2025-09-18 16:00] VITALS: BP 128/69; O2SAT 100
[2025-09-18] MEDS ORDERED: CEFTRIAXONE SODIUM 2,000 MG VIAL IV SCH (21:00)
[2025-09-18 23:46] VITALS: BP 146/64; O2SAT 97
[2025-09-19 05:10] LABS: BASO % 0.7 % (0.1-1.2); EOS # 0.39 (0.04-0.54); EOS % 5.6 % (0.7-7.0); LYMPH # 1.59 (1.18-3.74); LYMPH % 23.0 % (19.3-53.1); MEAN PLATELET VOLUME 10.20 fl (9.4-12.4); MONO # 0.66 (0.24-0.82); MONO % 9.5 % (4.7-12.5); NEUT # 4.19 (1.56-6.13); NEUT % 60.6 % (34.0-71.1); RED CELL DISTRIBUTION WIDTH 18.3 % (11.6-14.4)
[2025-09-19 05:14] LABS: ERYTHROCYTE SEDIMENTATION RATE 122 mm/hr (0-30)
[2025-09-19 08:00] VITALS: BP 130/78; O2SAT 99
[2025-09-19] MEDS ORDERED: INSULIN NPH HUM/REG INSULIN HM 1,000 UNIT/10 ML UNITS SUBCUTANEO SCH ×2 (11:00→17:00)
[2025-09-19] MEDS ORDERED: INSULIN NPH HUM/REG INSULIN HM 1,000 UNIT/10 ML UNITS SUBCUTANEO STA (11:02)
[2025-09-19 16:00] VITALS: BP 127/81; O2SAT 100
[2025-09-20 00:30] VITALS: BP 127/79; O2SAT 100
[2025-09-20] MEDS ORDERED: INSULIN NPH HUM/REG INSULIN HM 1,000 UNIT/10 ML UNITS SUBCUTANEO SCH (08:00)
[2025-09-20] MEDS ORDERED: POVIDONE-IODINE 118 ML BOTT TOP ONE (08:03)
[2025-09-20] MEDS ORDERED: VANCOMYCIN HCL 1,000 MG VIAL ONE ×4 (08:03→12:24)
[2025-09-20] MEDS ORDERED: CHLORHEXIDINE GLUCONATE 120 ML BOTTLE TOP ONE (08:25)
[2025-09-20] MEDS ORDERED: TRANEXAMIC ACID 100MG/1ML (1000MG) AMPUL IV ONE (09:30)
[2025-09-20] MEDS ORDERED: KETOROLAC TROMETHAMINE 30 MG VIAL ONE (13:43)
[2025-09-20] MEDS ORDERED: SODIUM CHLORIDE 0.45 % 1,000 ML IV SCH (13:45)
[2025-09-20] MEDS ORDERED: MORPHINE SULFATE 4 MG/ML CARTRIDGE IV PRN (14:00)
[2025-09-20 14:39] VITALS: BP 100/67; O2SAT 99
[2025-09-20 16:11] VITALS: BP 91/61; O2SAT 97
[2025-09-20] MEDS ORDERED: 0.9 % SODIUM CHLORIDE 1,000 ML IV SCH (16:45)
[2025-09-21 00:29] VITALS: BP 109/62; O2SAT 95
[2025-09-21] MEDS ORDERED: INSULIN REGULAR, HUMAN 1,000 UNIT/10 ML UNITS IV STA (08:10)
[2025-09-21] MEDS ORDERED: ACETAMINOPHEN WITH CODEINE 1 UDTAB TABLET PO PRN (08:15)
[2025-09-21 08:32] VITALS: BP 108/72; O2SAT 97
[2025-09-21 08:49] LABS: BUN CREA RATIO 20.0 (7.0-25.0); CREATININE SERUM 1.94 mg/dL (0.55-1.02); GFR 24.77; OSMOLALITY SERUM 294.0 MOSM/KG (275-295)
[2025-09-21 08:53] LABS: GLUCOSE FASTING 333.0 mg/dL (65-100)
[2025-09-21] MEDS ORDERED: IRON FUM,PS/FOLIC/BCOMP,C NO.9 1 CAP CAPSULE PO SCH (09:00)
[2025-09-21 11:19] LABS: BASO % 0.6 % (0.1-1.2); EOS # 0.17 (0.04-0.54); EOS % 1.4 % (0.7-7.0); LYMPH # 1.03 (1.18-3.74); LYMPH % 8.5 % (19.3-53.1); MEAN PLATELET VOLUME 11.10 fl (9.4-12.4); MONO # 0.82 (0.24-0.82); MONO % 6.7 % (4.7-12.5); NEUT # 10.01 (1.56-6.13); NEUT % 82.4 % (34.0-71.1); RED CELL DISTRIBUTION WIDTH 18.3 % (11.6-14.4)
[2025-09-21] MEDS ORDERED: INSULIN LISPRO 1,000 UNIT/10 ML UNITS SUBCUTANEO ONE (14:30)
[2025-09-21 15:40] VITALS: BP 144/73; O2SAT 96
[2025-09-21] MEDS ORDERED: ACETAMINOPHEN 500 MG GEL..CAP PO PRN (16:30)
[2025-09-21] MEDS ORDERED: ONDANSETRON HCL 4 MG in 0.9 % SODIUM CHLORIDE 50 ML IV PRN (16:30)
[2025-09-22 00:31] VITALS: BP 133/77; O2SAT 98
[2025-09-22 08:00] VITALS: BP 135/78; O2SAT 99
[2025-09-22 16:00] VITALS: BP 154/80; O2SAT 99
[2025-09-23 00:10] VITALS: BP 160/76; O2SAT 98
[2025-09-23 07:51] LABS: BASO % 0.7 % (0.1-1.2); EOS # 0.45 (0.04-0.54); EOS % 5.0 % (0.7-7.0); LYMPH # 2.09 (1.18-3.74); LYMPH % 23.3 % (19.3-53.1); MEAN PLATELET VOLUME 10.80 fl (9.4-12.4); MONO # 0.90 (0.24-0.82); MONO % 10.0 % (4.7-12.5); NEUT # 5.42 (1.56-6.13); NEUT % 60.3 % (34.0-71.1); RED CELL DISTRIBUTION WIDTH 18.5 % (11.6-14.4)
[2025-09-23 08:00] VITALS: BP 136/68; O2SAT 99
[2025-09-23 08:29] LABS: ALT/SGPT 17.0 U/L (12-78); AST/SGOT 20.0 U/L (15-37); BILIRUBIN TOTAL 0.28 mg/dL (0.3-1.2); BUN CREA RATIO 26.0 (7.0-25.0); CREATININE SERUM 0.91 mg/dL (0.55-1.02); GFR 59.33; GLOBULINA 3.6 G/DL (2.4-3.5); GLUCOSE FASTING 153.0 mg/dL (65-100); OSMOLALITY SERUM 286.0 MOSM/KG (275-295)
[2025-09-23 16:00] VITALS: BP 153/78; O2SAT 98
[2025-09-24 00:14] VITALS: BP 139/79; O2SAT 97
[2025-09-24 08:36] VITALS: BP 169/88; O2SAT 96
[2025-09-24 17:01] VITALS: BP 150/82; O2SAT 98
[2025-09-24 17:34] LABS: BASO % 0.6 % (0.1-1.2); EOS # 0.24 (0.04-0.54); EOS % 3.0 % (0.7-7.0); LYMPH # 1.81 (1.18-3.74); LYMPH % 22.5 % (19.3-53.1); MEAN PLATELET VOLUME 9.80 fl (9.4-12.4); MONO # 0.74 (0.24-0.82); MONO % 9.2 % (4.7-12.5); NEUT # 5.15 (1.56-6.13); NEUT % 64.2 % (34.0-71.1); RED CELL DISTRIBUTION WIDTH 17.4 % (11.6-14.4)
[2025-09-25 00:30] VITALS: BP 147/77; O2SAT 98
[2025-09-25 08:42] VITALS: BP 172/96; O2SAT 97
[2025-09-25 16:53] VITALS: BP 136/79; O2SAT 96
[2025-09-26 00:30] VITALS: BP 141/70; O2SAT 100
[2025-09-26 07:50] LABS: ALT/SGPT 18.0 U/L (12-78); AST/SGOT 22.0 U/L (15-37); BILIRUBIN TOTAL 0.33 mg/dL (0.3-1.2); BUN CREA RATIO 32.0 (7.0-25.0); CREATININE SERUM 0.72 mg/dL (0.55-1.02); GFR 77.74; GLOBULINA 3.9 G/DL (2.4-3.5); GLUCOSE FASTING 173.0 mg/dL (65-100); OSMOLALITY SERUM 284.0 MOSM/KG (275-295)
[2025-09-26 08:02] LABS: BASO % 0.6 % (0.1-1.2); EOS # 0.26 (0.04-0.54); EOS % 3.8 % (0.7-7.0); LYMPH # 1.13 (1.18-3.74); LYMPH % 16.6 % (19.3-53.1); MEAN PLATELET VOLUME 10.90 fl (9.4-12.4); MONO # 0.58 (0.24-0.82); MONO % 8.5 % (4.7-12.5); NEUT # 4.77 (1.56-6.13); NEUT % 69.9 % (34.0-71.1); RED CELL DISTRIBUTION WIDTH 16.6 % (11.6-14.4)
[2025-09-26 08:44] VITALS: BP 171/83; O2SAT 99
[2025-09-26 10:44] LABS: ERYTHROCYTE SEDIMENTATION RATE 83 mm/hr (0-30)
[2025-09-26 15:58] VITALS: BP 158/86; O2SAT 98
[2025-09-27 02:10] VITALS: BP 159/82; O2SAT 96
[2025-09-27 08:00] VITALS: BP 162/95; O2SAT 98
[2025-09-27 13:30] VITALS: BP 150/90
[2025-09-27 16:00] VITALS: BP 169/80; O2SAT 99
[2025-09-27] MEDS ORDERED: CIPROFLOXACIN IN 5 % DEXTROSE 400 MG/200 ML PIGGYBAG IV SCH (21:00)
[2025-09-28 08:00] VITALS: BP 174/80; O2SAT 99
[2025-09-28 16:24] VITALS: BP 145/80; BP 181/84; O2SAT 95; O2SAT 97
[2025-09-29 00:53] VITALS: BP 117/73; O2SAT 98
[2025-09-29] MEDS ORDERED: LEVOTHYROXINE SODIUM 137 MCG TABLET PO SCH (06:00)
[2025-09-29 07:45] LABS: BASO % 0.7 % (0.1-1.2); EOS # 0.24 (0.04-0.54); EOS % 3.6 % (0.7-7.0); LYMPH # 1.67 (1.18-3.74); LYMPH % 24.7 % (19.3-53.1); MEAN PLATELET VOLUME 10.80 fl (9.4-12.4); MONO # 0.75 (0.24-0.82); MONO % 11.1 % (4.7-12.5); NEUT # 4.02 (1.56-6.13); NEUT % 59.5 % (34.0-71.1); RED CELL DISTRIBUTION WIDTH 15.9 % (11.6-14.4)
[2025-09-29 08:03] LABS: ERYTHROCYTE SEDIMENTATION RATE 32 mm/hr (0-30)
[2025-09-29] MEDS ORDERED: LISINOPRIL 20 MG TABLET PO SCH (09:00)
[2025-09-29] MEDS ORDERED: DILTIAZEM HCL 240 MG CAP.SR.24H PO SCH (09:00)
[2025-09-29 09:09] VITALS: BP 161/82; O2SAT 97
[2025-09-29 17:26] VITALS: BP 154/87; O2SAT 98
[2025-09-29 23:59] VITALS: BP 138/73; O2SAT 97
[2025-09-30 09:30] VITALS: BP 155/99; O2SAT 97
[2025-09-30] MEDS ORDERED: ACETAMINOPHEN WITH CODEINE 1 UDTAB TABLET PO PRN (16:45)
[2025-09-30 17:05] VITALS: BP 129/68; O2SAT 97
[2025-10-01 00:45] VITALS: BP 131/65; O2SAT 98
[2025-10-01 08:00] VITALS: BP 134/80; O2SAT 97
[2025-10-01] MEDS ORDERED: INSULIN NPH HUM/REG INSULIN HM 1,000 UNIT/10 ML UNITS SUBCUTANEO STA (08:24)
[2025-10-01] MEDS ORDERED: INSULIN LISPRO 1,000 UNIT/10 ML UNITS SUBCUTANEO STA (12:59)
[2025-10-01 16:48] VITALS: BP 144/82; O2SAT 98
[2025-10-01] MEDS ORDERED: INSULIN NPH HUM/REG INSULIN HM 1,000 UNIT/10 ML UNITS SUBCUTANEO SCH (17:00)
[2025-10-01] MEDS ORDERED: CIPROFLOXACIN HCL 500 MG TABLET PO SCH (21:00)
[2025-10-02 01:08] VITALS: BP 135/76; O2SAT 97
[2025-10-02 08:00] VITALS: BP 160/83; O2SAT 98
[2025-10-02] MEDS ORDERED: INSULIN NPH HUM/REG INSULIN HM 1,000 UNIT/10 ML UNITS SUBCUTANEO SCH ×2 (08:00→17:00)
[2025-10-02 16:11] VITALS: BP 161/75; O2SAT 99
[2025-10-02] MEDS ORDERED: GABAPENTIN 300 MG CAPSULE PO SCH (17:50)
[2025-10-03 00:30] VITALS: BP 143/74; O2SAT 98
[2025-10-03] MEDS ORDERED: INSULIN NPH HUM/REG INSULIN HM 1,000 UNIT/10 ML UNITS SUBCUTANEO STA (08:18)
[2025-10-03] MEDS ORDERED: XARELTO10 MG PO (09:03)
[2025-10-03] MEDS ORDERED: ACETAMINOPHEN-1 EAC2 PO (09:04)
[2025-10-03] MEDS ORDERED: INTEGRA PLUS C1 EACH PO (09:04)
[2025-10-03 09:57] VITALS: BP 127/93; O2SAT 98
[2025-10-03 16:09] VITALS: BP 136/84; O2SAT 98
[2025-10-04] MEDS ORDERED: INSULIN NPH HUM/REG INSULIN HM 1,000 UNIT/10 ML UNITS SUBCUTANEO SCH (08:00)
== END 2025-10-03 19:02 | disposition home or self-care (01) | DRG 464 ==
LOC: ER 12:58 → SURH 18:00 → O/R 08-27 10:05 → SURH 08-27 10:06
PROVIDERS: Internal Medicine; Internal Medicine Infectious Disease; Internal Medicine Nephrology; Orthopaedic Surgery Sports Medicine; Physician Assistant Medical; ADMIT Internal Medicine; ATTEND Internal Medicine
PROC: 4A12X4Z Monitoring of Cardiac Electrical Activity, External Approach (ICD-10-PCS; 2025-08-24)
PROC: 0JBN0ZZ Excision of Right Lower Leg Subcutaneous Tissue and Fascia, Open Approach (ICD-10-PCS; principal; 2025-08-28)
PROC: 0SBC0ZZ Excision of Right Knee Joint, Open Approach (ICD-10-PCS; 2025-08-28)
PROC: 0SWV0JZ Revision of Synthetic Substitute in Right Knee Joint, Tibial Surface, Open Approach (ICD-10-PCS; 2025-08-28)
PROC: 3E10X8Z Irrigation of Skin and Mucous Membranes using Irrigating Substance (ICD-10-PCS; 2025-08-28)
PROC: 02HV33Z Insertion of Infusion Device into Superior Vena Cava, Percutaneous Approach (ICD-10-PCS; 2025-08-29)
PROC: B54PZZZ Ultrasonography of Bilateral Upper Extremity Veins (ICD-10-PCS; 2025-09-04)
PROC: 0JBN0ZZ Excision of Right Lower Leg Subcutaneous Tissue and Fascia, Open Approach (ICD-10-PCS; 2025-09-05)
PROC: 0SWV0JZ Revision of Synthetic Substitute in Right Knee Joint, Tibial Surface, Open Approach (ICD-10-PCS; 2025-09-05)
PROC: 0SWC0JZ Revision of Synthetic Substitute in Right Knee Joint, Open Approach (ICD-10-PCS; 2025-09-05)
PROC: 3E10X8Z Irrigation of Skin and Mucous Membranes using Irrigating Substance (ICD-10-PCS; 2025-09-05)
PROC: 30233N1 Transfusion of Nonautologous Red Blood Cells into Peripheral Vein, Percutaneous Approach (ICD-10-PCS; 2025-09-05)
PROC: B44HZZZ Ultrasonography of Bilateral Lower Extremity Arteries (ICD-10-PCS; 2025-09-15)
PROC: 0JBN0ZZ Excision of Right Lower Leg Subcutaneous Tissue and Fascia, Open Approach (ICD-10-PCS; 2025-09-20)
PROC: 0SRC0EZ Replacement of Right Knee Joint with Articulating Spacer, Open Approach (ICD-10-PCS; 2025-09-20)
PROC: 3E10X8Z Irrigation of Skin and Mucous Membranes using Irrigating Substance (ICD-10-PCS; 2025-09-20)
PROC: 0SPC0JZ Removal of Synthetic Substitute from Right Knee Joint, Open Approach (ICD-10-PCS; 2025-09-20)
DX: T84.53XA Infection and inflammatory reaction due to internal right knee prosthesis, initial encounter (principal); N17.8 Other acute kidney failure; Y65.8 Other specified misadventures during surgical and medical care; M65.861 Other synovitis and tenosynovitis, right lower leg; E88.9 Metabolic disorder, unspecified; E03.9 Hypothyroidism, unspecified; I10 Essential (primary) hypertension; Z79.4 Long term (current) use of insulin; E11.65 Type 2 diabetes mellitus with hyperglycemia; B96.29 Other Escherichia coli [E. coli] as the cause of diseases classified elsewhere; L08.89 Other specified local infections of the skin and subcutaneous tissue; E11.40 Type 2 diabetes mellitus with diabetic neuropathy, unspecified